=== PATIENT | male | born 1955 | race Caucasian/White ===

== ENCOUNTER 2019-09-06 09:22 | Inpatient (IN) | payer MEDICARE ==
[~2019-09-06] VITALS: Ht 177.8 cm; Wt 96.0 kg
--- NOTE | 2019-09-06 10:49 | NUR ---
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
--- NOTE | 2019-09-06 10:51 | NUR ---
FIRST CONTACT WITH PT. PT STATES "I HAVE BEEN SICK FOR A WEEK AND A HALF " PT C/O N/V/ABD PAIN. PT'S AOX4. RESPS EVEN AND UNLABORED. BP/SPO2 MONITORS IN PLACE. CALL LIGHT WITHIN REACH.
--- NOTE | 2019-09-06 11:53 | NUR ---
pt in xray at this time.
--- NOTE | 2019-09-06 11:57 | NUR ---
PT BACK TO ROOM FROM XRAY AT THIS TIME.
[2019-09-06] MEDS ORDERED: ONDANSETRON 2MG/ML, 2ML ONE (11:59)
[2019-09-06] MEDS ORDERED: ONDANSETRON 2MG/ML, 2ML IVPush ONE (12:00)
[2019-09-06] MEDS ORDERED: SODIUM CHLORIDE FLUSH 10ML SYR IVF ONE (12:00)
[2019-09-06] MEDS ORDERED: SODIUM CHLORIDE 0.9% 1,000ML IVBOLUS ONE (12:00)
--- NOTE | 2019-09-06 12:16 | NUR ---
PIV EST ON R AC WITH NO COMPLICATIONS. PT MEDICATED PER EMAR. PT TOLERATED WELL.
--- NOTE | 2019-09-06 12:21 | NUR ---
PT IS NOT ABLE TO PROVIDE URINE SAMPLE AT THIS TIME. PT AWARE OF UA.
[2019-09-06 12:39] LABS: BASOPHILS # (AUTO) 0.08 x10^3/uL (0-0.1); BASOPHILS % (AUTO) 1 % (0-1); EOSINOPHILS # (AUTO) 0.05 x10^3/uL (0-0.4); EOSINOPHILS % (AUTO) 0 % (1-7); LYMPHOCYTES % (AUTO) 11 % (22-44); MD NO; MEAN CORPUSCULAR HEMOGLOBIN 29.1 pg (27.5-34.5); MEAN CORPUSCULAR HGB CONC 32.9 g/dL (33.2-36.2); MEAN CORPUSCULAR VOLUME 88.3 fL (81-97); MEAN PLATELET VOLUME 8.7 fL (7.4-10.4); MONOCYTES # (AUTO) 0.71 x10^3/uL (0.2-0.8); MONOCYTES % (AUTO) 6 % (2-9); NEUTROPHILS # (AUTO) 10.81 x10^3/uL (1.8-6.8); NEUTROPHILS % (AUTO) 83 % (42-75); PLATELET COUNT 345 x10^3/uL (130-400); RED BLOOD COUNT 5.56 x10^6/uL (4.38-5.82); RED CELL DISTRIBUTION WIDTH 12.9 % (9.4-14.8)
--- NOTE | 2019-09-06 12:46 | NUR ---
PT IS NOT ABLE TO PROVIDE URINE SAMPLE YET. PT STATED "I'LL LET YOU KNOW WHEN I NEED TO PEE."
[2019-09-06 12:47] LABS: ALANINE AMINOTRANSFERASE 34 U/L (12-78); ALBUMIN 4.6 g/dL (3.4-5.0); ANION GAP 14 mmol/L (5-15); CALCIUM 8.7 mg/dL (8.5-10.1); CHLORIDE 84 mmol/L (98-107); CREATININE 1.36 mg/dL (0.7-1.3)
[2019-09-06 12:49] LABS: ALKALINE PHOSPHATASE 81 U/L (45-117); BILIRUBIN,TOTAL 1.6 mg/dL (0.2-1.0); TOTAL PROTEIN 8.6 g/dL (6.4-8.2)
--- NOTE | 2019-09-06 12:52 | NUR ---
PT AMB TO BR WITH STEADY GAIT. URINE CUP GIVEN.
[2019-09-06] MEDS ORDERED: NS + 40MEQ KCL 1,000 ML IV ONE ×2 (13:02→13:08)
--- NOTE | 2019-09-06 13:05 | NUR ---
PT PROVIDED URINE SAMPLE AT THIS TIME. UA SENT.
[2019-09-06 13:10] LABS: MICROSCOPIC INDICATED
--- NOTE | 2019-09-06 13:20 | NUR ---
K/NS INFUSING AT THIS TIME. PT TOLERATED WELL. PT'S AOX4. RESPS EVEN AND UNLABORED. ALL MONITORS IN PLACE. CALL LIGHT WITHIN REACH.
--- NOTE | 2019-09-06 13:36 | NUR ---
HOSPITALIST AT BEDSIDE AT THIS TIME.
[2019-09-06] MEDS ORDERED: METF500T17 PO (13:37)
[2019-09-06] MEDS ORDERED: TRAZ50TA66 PO (13:37)
[2019-09-06] MEDS ORDERED: ATOR40TA78 PO (13:38)
[2019-09-06] MEDS ORDERED: LISI-170 PO (13:38)
[2019-09-06] MEDS ORDERED: GABA600T7 PO (13:38)
[2019-09-06] MEDS ORDERED: ASPI-496 PO (13:39)
[2019-09-06] MEDS ORDERED: ONDA4TAB7 PO (13:39)
[2019-09-06] MEDS ORDERED: POLYETHYLENE GLYCOL 17 GM PACKET PO PRN (14:00)
[2019-09-06] MEDS ORDERED: DOCUSATE 100 MG CAPSULE PO PRN (14:00)
[2019-09-06] MEDS ORDERED: SODIUM CHLORIDE FLUSH 10ML SYR IVF PRN (14:00)
[2019-09-06] MEDS ORDERED: QUET25TA7 PO (14:20)
[2019-09-06] MEDS ORDERED: POTASSIUM CHLORIDE 40 MEQ in SODIUM CHLORIDE 0.9% 500 ML IV ONE (14:30)
[2019-09-06 14:37] LABS: BASOPHILS # (AUTO) 0.06 x10^3/uL (0-0.1); BASOPHILS % (AUTO) 0 % (0-1); EOSINOPHILS # (AUTO) 0.01 x10^3/uL (0-0.4); EOSINOPHILS % (AUTO) 0 % (1-7); LYMPHOCYTES # (AUTO) 2.11 x10^3/uL (1-3.4); LYMPHOCYTES % (AUTO) 16 % (22-44); MD NO; MEAN CORPUSCULAR HEMOGLOBIN 29.4 pg (27.5-34.5); MEAN CORPUSCULAR HGB CONC 33.3 g/dL (33.2-36.2); MEAN CORPUSCULAR VOLUME 88.5 fL (81-97); MONOCYTES # (AUTO) 0.95 x10^3/uL (0.2-0.8); MONOCYTES % (AUTO) 7 % (2-9); NEUTROPHILS # (AUTO) 10.21 x10^3/uL (1.8-6.8); NEUTROPHILS % (AUTO) 77 % (42-75); PLATELET COUNT 316 x10^3/uL (130-400); RED BLOOD COUNT 5.13 x10^6/uL (4.38-5.82); RED CELL DISTRIBUTION WIDTH 13.2 % (9.4-14.8)
[2019-09-06 14:47] LABS: TROPONIN I 0.045 ng/mL (0.000-0.045)
--- NOTE | 2019-09-06 15:18 | NUR ---
PT TO CT AT THIS TIME. PT'S AOX4. RESPS EVEN AND UNLABORED.
--- NOTE | 2019-09-06 15:27 | NUR ---
PT BACK TO ROOM FROM CT AT THIS TIME.
[2019-09-06] MEDS ORDERED: OMNIPAQUE 350 MG/ML, 100ML BOTTLE ONE (15:29)
[2019-09-06] MEDS: INSULIN LISPRO 100 UNITS/ML, PEN SQ-INSULIN SCH ×2 (16:00→21:00)
--- NOTE | 2019-09-06 16:32 | NUR ---
pt amb to br with steady gait.
--- NOTE | 2019-09-06 16:38 | NUR ---
bg 177 at this time.
--- NOTE | 2019-09-06 16:39 | NUR ---
medication ordered from pharmacy at this time.
[2019-09-06] MEDS ORDERED: POTASSIUM CHLORIDE 20 MEQ TAB.ER.PRT ONE (17:15)
[2019-09-06] MEDS: POTASSIUM CHLORIDE 20 MEQ TAB.ER.PRT PO SCH (17:18)
--- NOTE | 2019-09-06 17:21 | NUR ---
pt medicated per emar. pt tolerated well.
--- NOTE | 2019-09-06 18:00 | NUR ---
REPORT GIVEN TO IVETTE NESS. ALL QUESTIONS ANSWERED.
[2019-09-06 18:38] VITALS: BP 175/79
[2019-09-06 19:34] VITALS: BP 128/71
[2019-09-06 20:20] VITALS: BP 182/85
[2019-09-06] MEDS ORDERED: hydrALAzine 20 MG/ML, 1ML ONE (20:32)
[2019-09-06] MEDS: ONDANSETRON 2MG/ML, 2ML IVPush PRN (20:40)
[2019-09-06] MEDS ORDERED: hydrALAzine 20 MG/ML, 1ML IV ONE ×2 (21:00→23:00)
[2019-09-06 22:15] VITALS: BP 183/85
[2019-09-06] MEDS: LACTATED RINGERS 1,000 ML IV SCH (23:00)
[2019-09-06 23:07] LABS: OCCULT BLOOD NEGATIVE (NEGATIVE)
[2019-09-06 23:21] LABS: STOOL FOR LEUKOCYTES NONE SEEN (NEGATIVE)
[2019-09-06 23:28] LABS: CLOSTRIDIUM DIFFICILE ANTIGEN NEGATIVE; CLOSTRIDIUM DIFFICILE TOXIN NEGATIVE (Negative)
[2019-09-07 00:02] VITALS: BP 192/82
[2019-09-07] MEDS ORDERED: METOPROLOL 1 MG/ML, 5ML IVPush ONE (00:30)
[2019-09-07 01:18] VITALS: BP 147/69
[2019-09-07 01:43] VITALS: BP 145/73
[2019-09-07] MEDS ORDERED: TRAZODONE 50MG TABLET ONE ×2 (03:13→03:15)
[2019-09-07] MEDS: TRAZODONE 50MG TABLET PO PRN (03:20)
[2019-09-07] MEDS: ONDANSETRON 2MG/ML, 2ML IVPush PRN (05:08)
[2019-09-07 05:42] LABS: ALANINE AMINOTRANSFERASE 27 U/L (12-78); ALBUMIN 3.4 g/dL (3.4-5.0); ANION GAP 11 mmol/L (5-15); CALCIUM 7.7 mg/dL (8.5-10.1); CHLORIDE 97 mmol/L (98-107)
[2019-09-07 05:47] LABS: ALKALINE PHOSPHATASE 61 U/L (45-117); BILIRUBIN,TOTAL 1.2 mg/dL (0.2-1.0); CREATININE 0.83 mg/dL (0.7-1.3); TOTAL PROTEIN 6.6 g/dL (6.4-8.2); TROPONIN I 0.035 ng/mL (0.000-0.045)
[2019-09-07 06:26] VITALS: BP 174/84
[2019-09-07] MEDS: LACTATED RINGERS 1,000 ML IV SCH ×2 (07:46→14:45)
[2019-09-07] MEDS: POTASSIUM CHLORIDE 20 MEQ TAB.ER.PRT PO SCH ×2 (07:59→16:20)
[2019-09-07] MEDS: INSULIN LISPRO 100 UNITS/ML, PEN SQ-INSULIN SCH ×7 (07:59→20:09)
[2019-09-07 08:09] LABS: MD YES; MEAN CORPUSCULAR HEMOGLOBIN 29.3 pg (27.5-34.5); MEAN CORPUSCULAR HGB CONC 33.1 g/dL (33.2-36.2); MEAN CORPUSCULAR VOLUME 88.5 fL (81-97); MEAN PLATELET VOLUME 7.7 fL (7.4-10.4); PLATELET COUNT 275 x10^3/uL (130-400); RED BLOOD COUNT 4.62 x10^6/uL (4.38-5.82)
[2019-09-07 09:00] LABS: <PLATELET ESTIMATE> ADEQUATE; <PLT MORPHOLOGY> NORMAL PLT MORPH; <RBC MORPHOLOGY> NORMAL; BAND#(MANUAL) 0.18 x10^3/uL; BANDS%(MANUAL) 2 % (0-7); LYMPH#(MANUAL) 2.64 x10^3/uL (1-3.4); LYMPHS% (MANUAL) 29 % (22-44); MONOS#(MANUAL) 0.46 x10^3/uL (0.3-2.7); MONOS% (MANUAL) 5 % (2-9); SEG#(MANUAL) 5.82 x10^3/uL (1.8-6.8); SEGS% (MANUAL) 64 % (42-75)
[2019-09-07] MEDS ORDERED: POTASSIUM CHLORIDE 40 MEQ in SODIUM CHLORIDE 0.9% 500 ML IV ONE (09:00)
[2019-09-07] MEDS ORDERED: POTASSIUM CHLORIDE 20 MEQ TAB.ER.PRT PO ONE (09:00)
[2019-09-07 10:13] LABS: AMPHETAMINE SCREEN, URINE Negative (Negative); BARBITURATE SCREEN, URINE Negative (Negative); BENZODIAZEPINE SCREEN, URINE Negative (Negative); CANNABINOID SCREEN, URINE Positive (Negative); COCAINE SCREEN, URINE Negative (Negative); METHADONE SCREEN, URINE Negative (Negative); OPIATE SCREEN, URINE Negative (Negative)
[2019-09-07] MEDS: ONDANSETRON ODT 4 MG PO PRN (10:45)
[2019-09-07 12:26] VITALS: BP 149/80
[2019-09-07] MEDS ORDERED: LOPERAMIDE 2 MG CAPSULE ONE (14:12)
[2019-09-07] MEDS ORDERED: LOPERAMIDE 2 MG CAPSULE PO PRN (14:30)
[2019-09-07 16:16] LABS: CRYPTOSPORIDIUM ANTIGEN Negative (Negative)
[2019-09-07 18:40] VITALS: BP 160/75
[2019-09-07] MEDS ORDERED: DIPHENHYDRAMINE 25 MG CAPSULE ONE (22:44)
[2019-09-07] MEDS ORDERED: DIPHENHYDRAMINE 25 MG CAPSULE PO ONE (23:00)
[2019-09-08] VITALS (15 sets, daily range): BP systolic 155–192; BP diastolic 67–84
[2019-09-08] MEDS: TRAZODONE 50MG TABLET PO PRN ×2 (00:03→23:54)
[2019-09-08] MEDS: LACTATED RINGERS 1,000 ML IV SCH (03:31)
[2019-09-08 05:26] LABS: ANION GAP 8 mmol/L (5-15); CALCIUM 7.7 mg/dL (8.5-10.1); CHLORIDE 100 mmol/L (98-107); CREATININE 0.72 mg/dL (0.7-1.3)
[2019-09-08 05:28] LABS: BASOPHILS # (AUTO) 0.03 x10^3/uL (0-0.1); BASOPHILS % (AUTO) 1 % (0-1); EOSINOPHILS # (AUTO) 0.19 x10^3/uL (0-0.4); EOSINOPHILS % (AUTO) 3 % (1-7); LYMPHOCYTES # (AUTO) 2.04 x10^3/uL (1-3.4); LYMPHOCYTES % (AUTO) 27 % (22-44); MD NO; MEAN CORPUSCULAR HGB CONC 32.9 g/dL (33.2-36.2); MEAN CORPUSCULAR VOLUME 88.2 fL (81-97); MEAN PLATELET VOLUME 8.2 fL (7.4-10.4); MONOCYTES # (AUTO) 0.46 x10^3/uL (0.2-0.8); MONOCYTES % (AUTO) 6 % (2-9); NEUTROPHILS # (AUTO) 4.79 x10^3/uL (1.8-6.8); NEUTROPHILS % (AUTO) 64 % (42-75); PLATELET COUNT 268 x10^3/uL (130-400); RED BLOOD COUNT 4.42 x10^6/uL (4.38-5.82)
[2019-09-08] MEDS: ONDANSETRON 2MG/ML, 2ML IVPush PRN ×3 (06:02→19:38)
[2019-09-08] MEDS ORDERED: ENALAPRILAT 1.25 MG/ML, 1ML ONE (06:34)
[2019-09-08] MEDS: ENALAPRILAT 1.25 MG/ML, 2ML IV PRN ×3 (06:44→19:38)
[2019-09-08] MEDS: INSULIN LISPRO 100 UNITS/ML, PEN SQ-INSULIN SCH ×8 (07:02→20:52)
[2019-09-08] MEDS ORDERED: ACETAMINOPHEN 500 MG TABLET ONE (07:28)
[2019-09-08] MEDS: ACETAMINOPHEN 325 MG TABLET PO PRN (07:29)
[2019-09-08] MEDS: POTASSIUM CHLORIDE 20 MEQ TAB.ER.PRT PO SCH ×2 (07:29→17:22)
[2019-09-08] MEDS ORDERED: LISINOPRIL 5 MG TABLET ONE (08:11)
[2019-09-08] MEDS: LISINOPRIL 5 MG TABLET PO SCH (08:13)
[2019-09-08] MEDS: hydrOXyzine 10MG TABLET PO PRN (08:49)
[2019-09-08] MEDS ORDERED: hydrALAzine 20 MG/ML, 1ML IV ONE (17:30)
[2019-09-08] MEDS ORDERED: NITROGLYCERIN 0.4 MG BOTTLE (25 TABS) SL ONE (18:04)
[2019-09-08] MEDS ORDERED: LORazepam 2 MG/ML, 1ML ONE (18:19)
[2019-09-08] MEDS ORDERED: LORazepam 2 MG/ML, 1ML IVPush ONE (18:30)
[2019-09-08] MEDS ORDERED: morphine SULFATE 10 MG/ML, 1ML IVPush PRN (18:30)
[2019-09-08] MEDS: ASPIRIN 81 MG TABLET EC PO SCH (18:33)
[2019-09-08 20:49] LABS: TROPONIN I 0.023 ng/mL (0.000-0.045)
[2019-09-09 01:59] VITALS: BP 135/77
[2019-09-09 05:47] LABS: ANION GAP 10 mmol/L (5-15); CALCIUM 8.2 mg/dL (8.5-10.1); CHLORIDE 100 mmol/L (98-107); CREATININE 0.69 mg/dL (0.7-1.3)
[2019-09-09 05:51] LABS: TROPONIN I < 0.015 ng/mL (0.000-0.045)
[2019-09-09] MEDS: ASPIRIN 81 MG TABLET EC PO SCH (05:54)
[2019-09-09] MEDS: INSULIN LISPRO 100 UNITS/ML, PEN SQ-INSULIN SCH ×6 (07:26→21:25)
[2019-09-09 07:43] LABS: CHOL/HDL RATIO 3.1; LDL/HDL RATIO 1.4 (0.5-3.0)
[2019-09-09] MEDS: METOPROLOL TARTRATE 25 MG TAB PO SCH ×2 (08:05→17:05)
[2019-09-09] MEDS: ONDANSETRON 2MG/ML, 2ML IVPush PRN (08:05)
[2019-09-09] MEDS: LISINOPRIL 5 MG TABLET PO SCH (08:05)
[2019-09-09] MEDS: POTASSIUM CHLORIDE 20 MEQ TAB.ER.PRT PO SCH ×2 (08:05→17:05)
[2019-09-09 08:06] VITALS: BP 157/90
[2019-09-09 13:05] VITALS: BP 150/61
[2019-09-09 17:34] LABS: TROPONIN I < 0.015 ng/mL (0.000-0.045)
[2019-09-09 18:43] VITALS: BP 182/92
[2019-09-09] MEDS: hydrOXyzine 10MG TABLET PO PRN (21:36)
[2019-09-10] VITALS (11 sets, daily range): BP systolic 105–197; BP diastolic 53–88
[2019-09-10] MEDS: TRAZODONE 50MG TABLET PO PRN (01:16)
[2019-09-10] MEDS: ASPIRIN 81 MG TABLET EC PO SCH (05:59)
[2019-09-10] MEDS: METOPROLOL TARTRATE 25 MG TAB PO SCH (06:00)
[2019-09-10] MEDS: INSULIN LISPRO 100 UNITS/ML, PEN SQ-INSULIN SCH ×4 (07:00→20:44)
[2019-09-10 07:25] LABS: TROPONIN I < 0.015 ng/mL (0.000-0.045)
[2019-09-10] MEDS ORDERED: hydrALAzine 20 MG/ML, 1ML IV PRN ×2 (07:30→10:00)
[2019-09-10] MEDS: POTASSIUM CHLORIDE 20 MEQ TAB.ER.PRT PO SCH ×2 (08:00→17:25)
[2019-09-10] MEDS: ONDANSETRON 2MG/ML, 2ML IVPush PRN ×2 (08:01→23:15)
[2019-09-10] MEDS: ENALAPRILAT 1.25 MG/ML, 2ML IV PRN (08:01)
[2019-09-10] MEDS ORDERED: NITROGLYCERIN 0.4 MG BOTTLE (25 TABS) SL ONE (08:14)
[2019-09-10] MEDS: NITROGLYCERIN SINGLE TAB 0.4 MG SL PRN ×3 (08:16→08:30)
[2019-09-10] MEDS ORDERED: REGADENOSON 0.4 MG/5 ML SYRINGE ONE (08:40)
[2019-09-10] MEDS ORDERED: LISINOPRIL 20 MG TABLET PO SCH (09:00)
[2019-09-10] MEDS ORDERED: MINOXIDIL 10 MG TABLET PO STA (09:42)
[2019-09-10] MEDS ORDERED: LISINOPRIL 40 MG TABLET ONE (09:50)
[2019-09-10 12:46] LABS: FREE T4 (FREE THYROXINE) 2.51 ng/dL (0.76-1.46)
[2019-09-10] MEDS: ONDANSETRON ODT 4 MG PO PRN (14:04)
[2019-09-10] MEDS: LORazepam 2 MG/ML, 1ML IVPush PRN ×2 (14:04→22:46)
[2019-09-10] MEDS ORDERED: TERAZOSIN 5MG CAPSULE PO SCH (21:00)
[2019-09-11] VITALS (11 sets, daily range): BP systolic 62–147; BP diastolic 39–73
[2019-09-11] MEDS ORDERED: SODIUM CHLORIDE 0.9% 1,000ML IVBOLUS ONE ×2 (00:30→01:00)
[2019-09-11] MEDS: ACETAMINOPHEN 325 MG TABLET PO PRN (00:30)
[2019-09-11 01:02] LABS: TROPONIN I 0.108 ng/mL (0.000-0.045)
[2019-09-11] MEDS: ASPIRIN 81 MG TABLET EC PO SCH (05:32)
[2019-09-11 05:46] LABS: TROPONIN I 0.089 ng/mL (0.000-0.045)
[2019-09-11] MEDS: INSULIN LISPRO 100 UNITS/ML, PEN SQ-INSULIN SCH ×4 (07:00→20:23)
[2019-09-11] MEDS: POTASSIUM CHLORIDE 20 MEQ TAB.ER.PRT PO SCH ×2 (08:06→16:44)
[2019-09-11] MEDS ORDERED: AMLODIPINE 5 MG TABLET PO SCH (09:00)
[2019-09-11] MEDS ORDERED: TERAZOSIN 1MG CAPSULE PO SCH (21:00)
[2019-09-11] MEDS ORDERED: TERAZOSIN 5MG CAPSULE PO SCH (21:00)
[2019-09-11] MEDS ORDERED: TERAZOSIN 2MG CAPSULE PO ONE (22:00)
[2019-09-11] MEDS: LORazepam 2 MG/ML, 1ML IVPush PRN (23:27)
[2019-09-12 00:23] VITALS: BP 99/59
[2019-09-12] MEDS: TERAZOSIN MC SCH ×2 (00:27→08:26)
[2019-09-12] MEDS: ASPIRIN 81 MG TABLET EC PO SCH (05:28)
[2019-09-12 06:42] VITALS: BP 123/74
[2019-09-12] MEDS: INSULIN LISPRO 100 UNITS/ML, PEN SQ-INSULIN SCH ×2 (07:00→11:00)
[2019-09-12] MEDS: POTASSIUM CHLORIDE 20 MEQ TAB.ER.PRT PO SCH (08:30)
[2019-09-12] MEDS ORDERED: TERA2CAP3 PO (10:48)
[2019-09-12] MEDS ORDERED: METH10TA6 PO (10:48)
[2019-09-12 12:14] VITALS: BP 156/82
== END 2019-09-12 13:26 | disposition home or self-care (01) | DRG 643 ==
LOC: ED 12:20 → EDIP 13:45 → 4EST 14:28 → EDIP 15:22 → 4WST 18:22
PROVIDERS: ADMIT Family Medicine; ATTEND Internal Medicine
DX: E05.90 Thyrotoxicosis, unspecified without thyrotoxic crisis or storm (principal); N17.0 Acute kidney failure with tubular necrosis; E87.1 Hypo-osmolality and hyponatremia; F12.20 Cannabis dependence, uncomplicated; I16.0 Hypertensive urgency; E86.0 Dehydration; I10 Essential (primary) hypertension; E11.9 Type 2 diabetes mellitus without complications; I25.10 Atherosclerotic heart disease of native coronary artery without angina pectoris; R19.7 Diarrhea, unspecified; E78.5 Hyperlipidemia, unspecified; E66.9 Obesity, unspecified; E87.6 Hypokalemia; F41.9 Anxiety disorder, unspecified; K44.9 Diaphragmatic hernia without obstruction or gangrene; Z60.2 Problems related to living alone; Z79.84 Long term (current) use of oral hypoglycemic drugs; Z87.891 Personal history of nicotine dependence; I25.2 Old myocardial infarction; Z68.30 Body mass index [BMI] 30.0-30.9, adult
CPT/HCPCS: 36415; 74021; 74177; 76700; 78452; 80048; 80053; 80061; 80307; 81001; 82272; 82384; 82962; 83036; 83690; 83735; 83835; 84100; 84439; 84443; 84481; 84484; 84585; 85025; 87046; 87086; 87324; 87328; 87329; 87427; 89055; 93005; 93017; 93306; 96361; 96374; 96375; 99285; G0378; J2405; J2785; J3480; Q0162; Q9967; A9502; J0360; J1815; J2060; J2270; J7030; J7040; J7120; Q0163